=== PATIENT | male | born 1940 | race African-American/Black ===

== ENCOUNTER 2019-01-26 16:42 | Emergency (ER) | payer MEDICARE, MEDICAID ==
[~2019-01-26 16:42] MED LIST: GASTROGRAFIN 30 ML BOT ONE
--- NOTE | 2019-01-26 18:48 | RAD ---
EXAM: Single view of the abdomen HISTORY: Leaking PEG tube COMPARISON: None FINDINGS: Single view of the abdomen shows a nonspecific, nonobstructive bowel gas pattern. Contrast is seen in the patient's PEG tube, stomach, and proximal small bowel. There is no evidence of leakage of the contrast into the peritoneal cavity. No suspicious calcifications are seen. The bone s are unremarkable. IMPRESSION: PEG tube located in the stomach.
== END 2019-01-26 21:17 ==
LOC: ERS 16:42
DX: Z43.1 Encounter for attention to gastrostomy (principal); E03.9 Hypothyroidism, unspecified; E78.5 Hyperlipidemia, unspecified; M19.90 Unspecified osteoarthritis, unspecified site; E11.22 Type 2 diabetes mellitus with diabetic chronic kidney disease; N18.9 Chronic kidney disease, unspecified; G30.9 Alzheimer's disease, unspecified; M10.9 Gout, unspecified; F17.290 Nicotine dependence, other tobacco product, uncomplicated; F32.9 Major depressive disorder, single episode, unspecified; Z79.82 Long term (current) use of aspirin; Z79.899 Other long term (current) drug therapy
CPT/HCPCS: 43762; 74018; B4087; Q9963

== ENCOUNTER 2021-04-18 14:35 | Inpatient (IN) | payer MEDICARE, MEDICAID ==
[2021-04-18 15:41] LABS: #Eosinphils 0.1 thou/uL (0.0-0.7); #Monocytes 0.3 thou/uL (0.11-0.59); #Neutrophils 1.6 thou/uL (1.40-6.50); %Basophils 0.8 % (0.0-1.0); %Eosinophils 1.9 % (0.0-10.0); %Lymphocytes 33.8 % (21.0-51.0); %Monocytes 9.3 % (0.0-10.0); %Neutrophils 54.2 % (42.0-75.0); Hemoglobin 12.9 g/dL (14.0-18.0); Mean Corpuscular HGB CONC 32.4 g/dL (32.0-36.0); Mean Corpuscular Hemoglobin 31.4 pg (27.0-31.0); Mean Corpuscular Volume 96.8 fL (78.0-98.0); Mean Platelet Volume 6.9 fL (7.4-10.4); Platelet Count 126 thou/uL (130-400); RBC Distribution Width 12.8 % (11.5-14.5)
[2021-04-18 16:00] LABS: ALT (SGPT) 8 U/L (8-55); AST (SGOT) 14 U/L (5-34); Albumin 3.7 g/dL (3.4-4.8); Alkaline Phosphatase 34 U/L (40-110); Anion Gap 12 mmol/L (10-20); BUN (Urea Nitrogen) 20 mg/dL (8.4-25.7); Bilirubin, Total 0.3 mg/dL (0.2-1.2); Calc. Creatinine Clearance 0 mL/min (70-130); Calcium 8.7 mg/dL (7.8-10.44); Carbon Dioxide 23 mmol/L (23-31); Chloride 105 mmol/L (98-107); Globulin 2.3 g/dL (2.4-3.5); Glucose 106 mg/dL (83-110); Potassium 3.9 mmol/L (3.5-5.1); Sodium 136 mmol/L (136-145)
[2021-04-18] MEDS ORDERED: Lorazepam 2 MG/ML VIAL ONE ×3 (16:16→18:52)
[2021-04-18] MEDS ORDERED: Cefepime 2 GM VIAL ONE (16:16)
[2021-04-18] MEDS ORDERED: Acetaminophen 325 MG TAB PO PRN (16:28)
[2021-04-18] MEDS ORDERED: Dexamethasone 10 MG in Sodium Chloride 0.9% 50 ML IVPB SCH (16:29)
[2021-04-18] MEDS ORDERED: hydrALAZINE 20 MG/ML VIAL SLOW IVP PRN (16:29)
[2021-04-18] MEDS ORDERED: Thiamine 100 MG TAB PO SCH (16:30)
[2021-04-18] MEDS ORDERED: Enoxaparin Sodium 40 MG/0.4 ML SYRINGE SC SCH (16:30)
[2021-04-18] MEDS ORDERED: Zinc Sulfate 220 MG CAP PO SCH (17:15)
[2021-04-18] MEDS ORDERED: Cholecalciferol 1,000 UNITS (25 MCG) TAB PO SCH (17:15)
[2021-04-18] MEDS ORDERED: Pantoprazole 40 MG VIAL IVP SCH (17:15)
[2021-04-18] MEDS ORDERED: Dexamethasone 10 MG/ML VIAL SLOW IVP SCH (17:15)
[2021-04-18] MEDS ORDERED: Pharmacy to Dose REMDESIVIR IVPB PRN (17:38)
[2021-04-18] MEDS ORDERED: Ziprasidone 20 MG VIAL ONE (18:51)
[2021-04-18 19:04] LABS: SARS-CoV-2 IgG Spike Ab Interp Non-Reactive (NonReactive)
[2021-04-18] MEDS: Dexamethasone 10 MG/ML VIAL SLOW IVP SCH (21:33)
[2021-04-18] MEDS: Mometasone 200 MCG/Formoterol 5 MCG 120 PUFF INHALER INH SCH (21:56)
[2021-04-18 22:50] VITALS: BMI 22.6
[2021-04-19] MEDS: Mometasone 200 MCG/Formoterol 5 MCG 120 PUFF INHALER INH SCH (06:01)
[2021-04-19] MEDS: Dexamethasone 10 MG/ML VIAL SLOW IVP SCH (08:52)
[2021-04-19] MEDS: Ascorbic Acid 500 mg Chewable Tablet PO SCH ×2 (08:53→08:56)
[2021-04-19] MEDS: Cholecalciferol 1,000 UNITS (25 MCG) TAB PO SCH ×2 (08:53→08:57)
[2021-04-19] MEDS: Zinc Sulfate 220 MG CAP PO SCH ×2 (08:54→08:58)
[2021-04-19] MEDS: Thiamine 100 MG TAB PO SCH ×2 (08:54→08:57)
[2021-04-19] MEDS ORDERED: Pantoprazole 40 MG VIAL IVP SCH (09:00)
[2021-04-19] MEDS ORDERED: FLU VACC QS2021-22(65YR UP)/PF 240 MCG/0.7 ML SYRINGE IM ONE (09:00)
[2021-04-19] MEDS ORDERED: Enoxaparin Sodium 40 MG/0.4 ML SYRINGE SC SCH (09:00)
[2021-04-19 10:08] VITALS: BP 134/79; TEMP 98.1
[2021-04-19 12:03] LABS: SARS-CoV-2 PCR by NAA DETECTED (NotDetected)
== END 2021-04-19 15:17 | DRG 177 ==
LOC: ERS 14:35 → T4-B 16:30
PROVIDERS: ADMIT Internal Medicine; ATTEND Internal Medicine
PROC: 8E0ZXY6 Isolation (ICD-10-PCS; principal; 2021-04-18)
DX: U07.1 COVID-19 (principal); J96.21 Acute and chronic respiratory failure with hypoxia; F03.90 Unspecified dementia, unspecified severity, without behavioral disturbance, psychotic disturbance, mood disturbance, and anxiety; M06.9 Rheumatoid arthritis, unspecified; E78.5 Hyperlipidemia, unspecified; E03.9 Hypothyroidism, unspecified; E11.9 Type 2 diabetes mellitus without complications; Z28.21 Immunization not carried out because of patient refusal; Z93.0 Tracheostomy status; Z93.1 Gastrostomy status; Z79.899 Other long term (current) drug therapy; Z79.84 Long term (current) use of oral hypoglycemic drugs; Z79.890 Hormone replacement therapy
CPT/HCPCS: 36415; 71045; 80053; 83605; 83880; 84484; 85025; 85379; 86140; 86769; 87040; 87804; 93005; 94760; C9113; J0692; J1100; J1650; J2060; J3486; U0003; U0005

== ENCOUNTER 2021-04-25 17:21 | Inpatient (IN) | payer MEDICARE, MEDICAID ==
[2021-04-25 18:00] LABS: #Lymphocytes 0.3 thou/uL (1.20-3.40); #Monocytes 0.2 thou/uL (0.11-0.59); #Neutrophils 4.1 thou/uL (1.40-6.50); %Eosinophils 0.7 % (0.0-10.0); %Lymphocytes 6.6 % (21.0-51.0); %Monocytes 3.8 % (0.0-10.0); %Neutrophils 88.9 % (42.0-75.0); Hemoglobin 13.2 g/dL (14.0-18.0); Mean Corpuscular HGB CONC 32.8 g/dL (32.0-36.0); Mean Corpuscular Volume 97.6 fL (78.0-98.0); Mean Platelet Volume 7.6 fL (7.4-10.4); Platelet Count 172 thou/uL (130-400); RBC Distribution Width 13.1 % (11.5-14.5); Red Blood Cell (RBC) Count 4.11 mill/uL (4.70-6.10); White Blood Cell (WBC) Count 4.6 thou/uL (4.8-10.8)
[2021-04-25 18:12] LABS: INR-International Normal Ratio 1.3; PTT 35.3 sec (22.9-36.1)
[2021-04-25 18:21] LABS: ALT (SGPT) 21 U/L (8-55); AST (SGOT) 26 U/L (5-34); Albumin 3.3 g/dL (3.4-4.8); Alkaline Phosphatase 39 U/L (40-110); Anion Gap 15 mmol/L (10-20); BUN (Urea Nitrogen) 42 mg/dL (8.4-25.7); Bilirubin, Total 0.9 mg/dL (0.2-1.2); Calc. Creatinine Clearance 0 mL/min (70-130); Calcium 8.8 mg/dL (7.8-10.44); Carbon Dioxide 24 mmol/L (23-31); Chloride 112 mmol/L (98-107); Globulin 2.9 g/dL (2.4-3.5); Glucose 131 mg/dL (83-110); Potassium 3.8 mmol/L (3.5-5.1); Protein, Total 6.2 g/dL (5.8-8.1); Sodium 147 mmol/L (136-145)
[2021-04-25 20:56] LABS: Lactic Acid 1.9 mmol/L (0.5-2.2)
[2021-04-25] MEDS ORDERED: Ondansetron PF 4 MG/2 ML Vial IVP PRN (21:04)
[2021-04-25] MEDS ORDERED: Acetaminophen 650 MG Suppository PR PRN (21:04)
[2021-04-25] MEDS ORDERED: Ondansetron ODT 4 MG TAB PO PRN (21:04)
[2021-04-25] MEDS ORDERED: Acetaminophen 325 MG TAB PO PRN (21:04)
[2021-04-25] MEDS ORDERED: Sodium Chloride 0.9% 1,000 ML IV SCH (23:30)
[2021-04-25 23:32] VITALS: BMI 20.1
[2021-04-25] MEDS ORDERED: HumaLOG 300 UNITS/3 ML VIAL SC PRN ×2 (23:37)
[2021-04-25] MEDS ORDERED: Dextrose 50% Abboject 50 ML SYRINGE SLOW IVP PRN (23:37)
[2021-04-25] MEDS ORDERED: Dextrose 5% in Water 1,000 ML IV PRN (23:37)
[2021-04-25] MEDS ORDERED: Sterile Water 10 ML VIAL FS PRN (23:45)
[2021-04-25] MEDS ORDERED: OLANZapine 10 MG VIAL IM SCH (23:45)
[2021-04-25] MEDS ORDERED: Piperacillin/Tazobactam 3.375 GM in Sodium Chloride 0.9% 100 ML IVPB SCH (23:59)
[2021-04-26] MEDS: Sodium Chloride 0.9% 1,000 ML IV SCH ×3 (01:21→20:02)
[2021-04-26] MEDS: Piperacillin/Tazobactam 3.375 GM in Sodium Chloride 0.9% 100 ML IVPB SCH ×3 (05:39→20:02)
[2021-04-26 08:07] LABS: #Eosinphils 0.3 thou/uL (0.0-0.7); #Lymphocytes 0.8 thou/uL (1.20-3.40); #Monocytes 0.2 thou/uL (0.11-0.59); #Neutrophils 3.9 thou/uL (1.40-6.50); %Basophils 0.3 % (0.0-1.0); %Lymphocytes 15.9 % (21.0-51.0); %Monocytes 3.5 % (0.0-10.0); %Neutrophils 74.5 % (42.0-75.0); Hemoglobin 13.2 g/dL (14.0-18.0); Mean Corpuscular HGB CONC 32.5 g/dL (32.0-36.0); Mean Corpuscular Hemoglobin 32.1 pg (27.0-31.0); Mean Corpuscular Volume 98.8 fL (78.0-98.0); Mean Platelet Volume 7.7 fL (7.4-10.4); Platelet Count 176 thou/uL (130-400); RBC Distribution Width 13.1 % (11.5-14.5); White Blood Cell (WBC) Count 5.3 thou/uL (4.8-10.8)
[2021-04-26 08:13] LABS: Anion Gap 13 mmol/L (10-20); BUN (Urea Nitrogen) 35 mg/dL (8.4-25.7); Calc. Creatinine Clearance 49 mL/min (70-130); Calcium 8.9 mg/dL (7.8-10.44); Carbon Dioxide 25 mmol/L (23-31); Chloride 115 mmol/L (98-107); Glucose 97 mg/dL (83-110); Potassium 3.7 mmol/L (3.5-5.1); Sodium 149 mmol/L (136-145)
[2021-04-26] MEDS: Enoxaparin Sodium 40 MG/0.4 ML SYRINGE SC SCH (10:31)
[2021-04-26] MEDS: Zinc Sulfate 220 MG CAP PO SCH (12:37)
[2021-04-26] MEDS: Ascorbic Acid 500 mg Chewable Tablet PO SCH (12:37)
[2021-04-26] MEDS: Cholecalciferol (Vitamin D3) 400 UNITS TAB PO SCH (12:37)
[2021-04-26] MEDS ORDERED: Dexamethasone 6 MG in Sodium Chloride 0.9% 50 ML IVPB SCH (15:55)
[2021-04-26] MEDS ORDERED: Dexamethasone 4 mg/ml Vial SLOW IVP SCH (16:00)
[2021-04-27] MEDS: Piperacillin/Tazobactam 3.375 GM in Sodium Chloride 0.9% 100 ML IVPB SCH ×3 (04:44→20:57)
[2021-04-27] MEDS: Sodium Chloride 0.9% 1,000 ML IV SCH (04:45)
[2021-04-27 05:58] LABS: #Eosinphils 0.3 thou/uL (0.0-0.7); #Lymphocytes 0.9 thou/uL (1.20-3.40); #Monocytes 0.3 thou/uL (0.11-0.59); #Neutrophils 3.1 thou/uL (1.40-6.50); %Basophils 0.3 % (0.0-1.0); %Eosinophils 6.6 % (0.0-10.0); %Lymphocytes 20.1 % (21.0-51.0); %Monocytes 5.7 % (0.0-10.0); %Neutrophils 67.4 % (42.0-75.0); Hemoglobin 13.3 g/dL (14.0-18.0); Mean Corpuscular HGB CONC 32.1 g/dL (32.0-36.0); Mean Corpuscular Hemoglobin 31.6 pg (27.0-31.0); Mean Corpuscular Volume 98.5 fL (78.0-98.0); Mean Platelet Volume 7.6 fL (7.4-10.4); Platelet Count 186 thou/uL (130-400); RBC Distribution Width 13.1 % (11.5-14.5); Red Blood Cell (RBC) Count 4.19 mill/uL (4.70-6.10); White Blood Cell (WBC) Count 4.5 thou/uL (4.8-10.8)
[2021-04-27 06:24] LABS: Anion Gap 14 mmol/L (10-20); BUN (Urea Nitrogen) 22 mg/dL (8.4-25.7); Calc. Creatinine Clearance 58 mL/min (70-130); Calcium 8.7 mg/dL (7.8-10.44); Carbon Dioxide 24 mmol/L (23-31); Chloride 117 mmol/L (98-107); Glucose 133 mg/dL (83-110); Potassium 3.6 mmol/L (3.5-5.1); Sodium 151 mmol/L (136-145)
[2021-04-27] MEDS: Enoxaparin Sodium 40 MG/0.4 ML SYRINGE SC SCH (08:57)
[2021-04-27] MEDS: Ascorbic Acid 500 mg Chewable Tablet PO SCH (08:57)
[2021-04-27] MEDS: Cholecalciferol (Vitamin D3) 400 UNITS TAB PO SCH (08:57)
[2021-04-27] MEDS: Zinc Sulfate 220 MG CAP PO SCH (08:57)
[2021-04-27] MEDS: Dexamethasone 4 mg/ml Vial SLOW IVP SCH (08:57)
[2021-04-27] MEDS: Dextrose 5% in Water 1,000 ML IV SCH (11:11)
[2021-04-28] MEDS: Piperacillin/Tazobactam 3.375 GM in Sodium Chloride 0.9% 100 ML IVPB SCH ×2 (05:49→11:57)
[2021-04-28] MEDS: Dextrose 5% in Water 1,000 ML IV SCH (05:49)
[2021-04-28 07:09] LABS: Anion Gap 16 mmol/L (10-20); BUN (Urea Nitrogen) 20 mg/dL (8.4-25.7); Calc. Creatinine Clearance 66 mL/min (70-130); Calcium 8.8 mg/dL (7.8-10.44); Carbon Dioxide 20 mmol/L (23-31); Chloride 115 mmol/L (98-107); Glucose 100 mg/dL (83-110); Potassium 4.1 mmol/L (3.5-5.1); Sodium 147 mmol/L (136-145)
[2021-04-28 07:25] LABS: Hemoglobin 13.4 g/dL (14.0-18.0); Mean Corpuscular HGB CONC 31.2 g/dL (32.0-36.0); Mean Corpuscular Hemoglobin 31.2 pg (27.0-31.0); Mean Platelet Volume 7.7 fL (7.4-10.4); Platelet Count 204 thou/uL (130-400); RBC Distribution Width 13.1 % (11.5-14.5); White Blood Cell (WBC) Count 4.4 thou/uL (4.8-10.8)
[2021-04-28 07:26] LABS: Band 13 % (5-11); Eosinophils 2 % (0-10); Lymphocytes 29 % (21-51); MDiff Complete? YES; Neutrophil 56 % (42-75)
[2021-04-28] MEDS: Enoxaparin Sodium 40 MG/0.4 ML SYRINGE SC SCH (08:45)
[2021-04-28] MEDS: Dexamethasone 4 mg/ml Vial SLOW IVP SCH (08:45)
[2021-04-28] MEDS: Cholecalciferol (Vitamin D3) 400 UNITS TAB PO SCH (08:45)
[2021-04-28] MEDS: Ascorbic Acid 500 mg Chewable Tablet PO SCH (08:45)
[2021-04-28] MEDS: Zinc Sulfate 220 MG CAP PO SCH (08:45)
[2021-04-28 10:05] VITALS: BP 152/86; TEMP 98.4
== END 2021-04-28 14:40 | DRG 871 ==
LOC: ERS 17:21 → T4-B 20:06
PROVIDERS: ADMIT Student in an Organized Health Care Education/Training Program; ATTEND Internal Medicine
PROC: 8E0ZXY6 Isolation (ICD-10-PCS; principal; 2021-04-25)
DX: A41.9 Sepsis, unspecified organism (principal); J96.01 Acute respiratory failure with hypoxia; U07.1 COVID-19; N17.9 Acute kidney failure, unspecified; E87.1 Hypo-osmolality and hyponatremia; G93.49 Other encephalopathy; E78.5 Hyperlipidemia, unspecified; N18.9 Chronic kidney disease, unspecified; E11.22 Type 2 diabetes mellitus with diabetic chronic kidney disease; M10.9 Gout, unspecified; E03.9 Hypothyroidism, unspecified; F17.290 Nicotine dependence, other tobacco product, uncomplicated; M19.90 Unspecified osteoarthritis, unspecified site; R65.20 Severe sepsis without septic shock; E11.649 Type 2 diabetes mellitus with hypoglycemia without coma; M06.9 Rheumatoid arthritis, unspecified; E86.0 Dehydration; G30.9 Alzheimer's disease, unspecified; F02.80 Dementia in other diseases classified elsewhere, unspecified severity, without behavioral disturbance, psychotic disturbance, mood disturbance, and anxiety; Z79.82 Long term (current) use of aspirin; Z79.899 Other long term (current) drug therapy; Z79.84 Long term (current) use of oral hypoglycemic drugs; Z93.1 Gastrostomy status
CPT/HCPCS: 36415; 36416; 71045; 80048; 80053; 83605; 85025; 85610; 85730; 87040; 93005; J1100; J1650; J2358; J2543; J3490; J7050; J7070

== ENCOUNTER 2021-05-02 18:30 | Inpatient (IN) | payer MEDICARE, MEDICAID ==
[2021-05-02 19:20] LABS: #Eosinphils 0.1 thou/uL (0.0-0.7); #Lymphocytes 0.6 thou/uL (1.20-3.40); #Monocytes 0.2 thou/uL (0.11-0.59); #Neutrophils 5.3 thou/uL (1.40-6.50); %Basophils 0.5 % (0.0-1.0); %Eosinophils 1.9 % (0.0-10.0); %Lymphocytes 9.7 % (21.0-51.0); %Monocytes 2.8 % (0.0-10.0); %Neutrophils 85.2 % (42.0-75.0); Hemoglobin 12.5 g/dL (14.0-18.0); Mean Corpuscular HGB CONC 31.1 g/dL (32.0-36.0); Mean Corpuscular Hemoglobin 31.2 pg (27.0-31.0); Mean Platelet Volume 7.2 fL (7.4-10.4); Platelet Count 267 thou/uL (130-400); RBC Distribution Width 13.2 % (11.5-14.5); Red Blood Cell (RBC) Count 4.02 mill/uL (4.70-6.10); White Blood Cell (WBC) Count 6.2 thou/uL (4.8-10.8)
[2021-05-02 20:00] LABS: ALT (SGPT) 43 U/L (8-55); AST (SGOT) 33 U/L (5-34); Albumin 3.2 g/dL (3.4-4.8); Alkaline Phosphatase 56 U/L (40-110); Anion Gap 15 mmol/L (10-20); BUN (Urea Nitrogen) 22 mg/dL (8.4-25.7); Bilirubin, Total 0.3 mg/dL (0.2-1.2); Calc. Creatinine Clearance 0 mL/min (70-130); Calcium 8.6 mg/dL (7.8-10.44); Carbon Dioxide 23 mmol/L (23-31); Chloride 109 mmol/L (98-107); Globulin 2.2 g/dL (2.4-3.5); Glucose 183 mg/dL (83-110); Potassium 3.5 mmol/L (3.5-5.1); Protein, Total 5.4 g/dL (5.8-8.1); Sodium 143 mmol/L (136-145)
[2021-05-02 20:36] LABS: CKMB 8.2 ng/mL (0-6.6)
[2021-05-02] MEDS ORDERED: Enoxaparin Sodium 80 MG/0.8 ML SYRINGE ONE (22:27)
[2021-05-02] MEDS ORDERED: Ondansetron PF 4 MG/2 ML Vial IVP PRN (23:09)
[2021-05-02] MEDS ORDERED: Acetaminophen 325 MG TAB PO PRN (23:09)
[2021-05-02] MEDS ORDERED: Enoxaparin Sodium 60 MG/0.6 ML SYRINGE ONE (23:12)
[2021-05-02] MEDS ORDERED: Dextrose 50% Abboject 50 ML SYRINGE SLOW IVP PRN (23:19)
[2021-05-02] MEDS ORDERED: Dextrose 5% in Water 1,000 ML IV PRN (23:19)
[2021-05-02] MEDS ORDERED: HumaLOG 300 UNITS/3 ML VIAL SC PRN ×2 (23:19)
[2021-05-02 23:41] LABS: CKMB 18.5 ng/mL (0-6.6)
[2021-05-03 00:59] VITALS: BMI 21.3
[2021-05-03] MEDS ORDERED: Aspirin 325 mg Enteric Coated Tablet PO SCH (09:00)
[2021-05-03] MEDS ORDERED: Dexamethasone 4 mg/ml Vial SLOW IVP SCH (09:00)
[2021-05-03] MEDS ORDERED: FLU VACC QS2021-22(65YR UP)/PF 240 MCG/0.7 ML SYRINGE IM ONE (09:00)
[2021-05-03] MEDS: Famotidine 20 MG TAB PO SCH ×2 (09:50→21:54)
[2021-05-03] MEDS: Zinc Sulfate 220 MG CAP PO SCH (09:50)
[2021-05-03] MEDS: Ascorbic Acid 500 mg Chewable Tablet PO SCH (09:50)
[2021-05-03] MEDS ORDERED: ANTICOAG Communication Order-Pharmacy FS ONE (11:20)
[2021-05-03] MEDS ORDERED: Clopidogrel Bisulfate 300 MG TAB PO SCH (11:30)
[2021-05-03 12:53] LABS: Band 9 % (5-11); Burr Cells SLIGHT = 2-5 cells (100X) (0-1/hpf); Eosinophils 2 % (0-10); Hemoglobin 12.4 g/dL (14.0-18.0); Hypochromia SLIGHT = 6-15 cells (100X) (0-5/hpf); Lymphocytes 16 % (21-51); MDiff Complete? YES; Macrocytosis SLIGHT = 6-15 cells (100X) (0-5/hpf); Mean Corpuscular HGB CONC 31.1 g/dL (32.0-36.0); Mean Corpuscular Hemoglobin 31.8 pg (27.0-31.0); Mean Platelet Volume 7.1 fL (7.4-10.4); Monocytes 6 % (0-10); Myelocyte 3 % (0-0); Neutrophil 59 % (42-75); Ovalocytes SLIGHT = 2-5 cells (100X) (0-1/hpf); Platelet Count 278 thou/uL (130-400); Platelet Morphology Comment Appears Adequate; Polychromasia SLIGHT = 2-3 cells (100X) (0-2/hpf); RBC Distribution Width 13.2 % (11.5-14.5); Reactive Lymphocytes 4 % (0-10); White Blood Cell (WBC) Count 5.6 thou/uL (4.8-10.8)
[2021-05-03 13:06] LABS: Critical Call Chem Troponin I RESULT DECREASING; Troponin I 4.312 ng/mL (< 0.028)
[2021-05-03 13:11] LABS: Anion Gap 9 mmol/L (10-20); BUN (Urea Nitrogen) 20 mg/dL (8.4-25.7); CRP (Inflammatory) 1.32 mg/dL (= or < 0.5); Calc. Creatinine Clearance 70 mL/min (70-130); Calcium 8.7 mg/dL (7.8-10.44); Carbon Dioxide 27 mmol/L (23-31); Chloride 108 mmol/L (98-107); Glucose 107 mg/dL (83-110); Magnesium 1.5 mg/dL (1.6-2.6); Potassium 3.5 mmol/L (3.5-5.1); Sodium 140 mmol/L (136-145)
[2021-05-03] MEDS: Enoxaparin Sodium 80 MG/0.8 ML SYRINGE SC SCH (21:54)
[2021-05-03] MEDS: Atorvastatin Calcium 40 MG TAB PER TUBE SCH (21:54)
[2021-05-03] MEDS: Metoprolol Tartrate 25 MG TAB PO SCH (21:54)
[2021-05-04 07:38] LABS: Hemoglobin A1c 7.1 % (4.0-6.0)
[2021-05-04 07:43] LABS: Anion Gap 13 mmol/L (10-20); BUN (Urea Nitrogen) 17 mg/dL (8.4-25.7); Calc. Creatinine Clearance 72 mL/min (70-130); Calcium 8.7 mg/dL (7.8-10.44); Carbon Dioxide 24 mmol/L (23-31); Chloride 106 mmol/L (98-107); Glucose 85 mg/dL (83-110); Magnesium 1.5 mg/dL (1.6-2.6); Potassium 3.3 mmol/L (3.5-5.1); Sodium 140 mmol/L (136-145)
[2021-05-04 07:47] LABS: Band 15 % (5-11); Eosinophils 5 % (0-10); Hypochromia SLIGHT = 6-15 cells (100X) (0-5/hpf); Lymphocytes 25 % (21-51); MDiff Complete? YES; Macrocytosis SLIGHT = 6-15 cells (100X) (0-5/hpf); Mean Corpuscular HGB CONC 28.8 g/dL (32.0-36.0); Mean Platelet Volume 7.1 fL (7.4-10.4); Metamyelocyte 1 % (0-0); Monocytes 3 % (0-10); Myelocyte 2 % (0-0); Neutrophil 40 % (42-75); Ovalocytes SLIGHT = 2-5 cells (100X) (0-1/hpf); Platelet Count 268 thou/uL (130-400); Platelet Morphology Comment Appears Adequate; Polychromasia SLIGHT = 2-3 cells (100X) (0-2/hpf); RBC Distribution Width 13.4 % (11.5-14.5); Reactive Lymphocytes 9 % (0-10); Schistocytes SLIGHT = 2-5 cells (100X) (0-1/hpf); Target Cells SLIGHT = 2-5 cells (100X) (0-1/hpf); White Blood Cell (WBC) Count 4.9 thou/uL (4.8-10.8)
[2021-05-04] MEDS ORDERED: Enoxaparin Sodium 40 MG/0.4 ML SYRINGE SC SCH (09:00)
[2021-05-04] MEDS: Aspirin 81 mg Enteric Coated Tablet PO SCH (10:24)
[2021-05-04] MEDS: Clopidogrel Bisulfate 75 MG TAB PO SCH (10:24)
[2021-05-04] MEDS: Ascorbic Acid 500 mg Chewable Tablet PO SCH (10:24)
[2021-05-04] MEDS: Enoxaparin Sodium 80 MG/0.8 ML SYRINGE SC SCH ×2 (10:25→21:08)
[2021-05-04] MEDS: Famotidine 20 MG TAB PO SCH ×2 (10:25→21:02)
[2021-05-04] MEDS: Zinc Sulfate 220 MG CAP PO SCH (10:26)
[2021-05-04] MEDS ORDERED: Iopamidol 370 76% 100 ML VIAL ONE (10:45)
[2021-05-04] MEDS: Metoprolol Tartrate 25 MG TAB PO SCH (10:59)
[2021-05-04] MEDS ORDERED: Metoprolol Tartrate 25 MG TAB PO SCH (11:45)
[2021-05-04] MEDS ORDERED: Piperacillin/Tazobactam 3.375 GM in Sodium Chloride 0.9% 100 ML IVPB SCH (12:00)
[2021-05-04] MEDS ORDERED: Potassium Chloride 20 MEQ TAB PO SCH (12:00)
[2021-05-04] MEDS: Albuterol Sulfate 2.5 mg/3 ml Neb NEB SCH ×2 (14:21→19:40)
[2021-05-04] MEDS: Acetylcysteine 10% 100 MG/ML 30 ml Vial INH SCH ×2 (14:30→19:38)
[2021-05-04] MEDS ORDERED: OLANZapine 10 MG VIAL IM SCH (20:30)
[2021-05-04] MEDS: Piperacillin/Tazobactam 3.375 GM in Sodium Chloride 0.9% 100 ML IVPB SCH (21:02)
[2021-05-04] MEDS: Atorvastatin Calcium 40 MG TAB PER TUBE SCH (21:02)
[2021-05-04] MEDS: Metoprolol Tartrate 50 MG TAB PO SCH (21:03)
[2021-05-04] MEDS ORDERED: Sterile Water 10 ML VIAL FS PRN (21:45)
[2021-05-05] MEDS: Albuterol Sulfate 2.5 mg/3 ml Neb NEB SCH ×4 (01:28→23:10)
[2021-05-05] MEDS: Acetylcysteine 10% 100 MG/ML 30 ml Vial INH SCH ×4 (01:28→23:15)
[2021-05-05] MEDS: Piperacillin/Tazobactam 3.375 GM in Sodium Chloride 0.9% 100 ML IVPB SCH ×2 (04:08→11:46)
[2021-05-05 04:40] LABS: ALT (SGPT) 31 U/L (8-55); AST (SGOT) 23 U/L (5-34); Albumin 3.3 g/dL (3.4-4.8); Alkaline Phosphatase 46 U/L (40-110); Anion Gap 6 mmol/L (10-20); BUN (Urea Nitrogen) 10 mg/dL (8.4-25.7); Bilirubin, Total 0.8 mg/dL (0.2-1.2); Calc. Creatinine Clearance 60 mL/min (70-130); Calcium 8.7 mg/dL (7.8-10.44); Carbon Dioxide 32 mmol/L (23-31); Cardiac Risk 3.7 (Less than 4.5); Chloride 107 mmol/L (98-107); Cholesterol 165 mg/dl (< 200 Desired); Globulin 2.5 g/dL (2.4-3.5); Glucose 98 mg/dL (83-110); HDL Cholesterol 45 mg/dL (>60 Neg Risk); LDL Cholesterol, Calculated 102 mg/dL; Magnesium 1.6 mg/dL (1.6-2.6); Potassium 3.4 mmol/L (3.5-5.1); Protein, Total 5.8 g/dL (5.8-8.1); Sodium 142 mmol/L (136-145); Triglycerides 92 mg/dL (Less than 150)
[2021-05-05 05:28] LABS: Hemoglobin 12.7 g/dL (14.0-18.0); Mean Corpuscular HGB CONC 31.6 g/dL (32.0-36.0); Mean Corpuscular Hemoglobin 31.4 pg (27.0-31.0); Mean Corpuscular Volume 99.5 fL (78.0-98.0); Mean Platelet Volume 6.6 fL (7.4-10.4); Platelet Count 247 thou/uL (130-400); RBC Distribution Width 13.1 % (11.5-14.5); Red Blood Cell (RBC) Count 4.03 mill/uL (4.70-6.10); White Blood Cell (WBC) Count 4.6 thou/uL (4.8-10.8)
[2021-05-05 06:28] LABS: Band 8 % (5-11); Eosinophils 5 % (0-10); Lymphocytes 35 % (21-51); MDiff Complete? YES; Monocytes 2 % (0-10); Myelocyte 3 % (0-0); Neutrophil 45 % (42-75)
[2021-05-05] MEDS ORDERED: Folic Acid 1 MG TAB PO SCH (09:00)
[2021-05-05] MEDS ORDERED: Thiamine 100 MG TAB PO SCH (09:00)
[2021-05-05] MEDS ORDERED: Calcium Carbonate 600 MG + Vit D TAB PO SCH (09:00)
[2021-05-05] MEDS ORDERED: Zinc Sulfate 220 MG CAP PO SCH (09:00)
[2021-05-05] MEDS ORDERED: Non-Formulary Item 1 EACH (Folic Acid [Folic Acid] 0.4 MG Tablet) PO SCH (09:00)
[2021-05-05] MEDS ORDERED: Multivit, Therapeutic 1 TAB PO SCH (09:00)
[2021-05-05] MEDS ORDERED: Levothyroxine Sodium 125 MCG TAB PO SCH (09:00)
[2021-05-05] MEDS ORDERED: Non-Formulary Item 1 EACH (Multivitamin [Multi-Vitamin Daily] 1 TABLET Tablet) PO SCH (09:00)
[2021-05-05] MEDS ORDERED: Potassium Chloride 20 MEQ TAB PO SCH ×2 (09:15→10:00)
[2021-05-05] MEDS: Ascorbic Acid 500 mg Chewable Tablet PO SCH (10:38)
[2021-05-05] MEDS: Clopidogrel Bisulfate 75 MG TAB PO SCH (10:38)
[2021-05-05] MEDS: Aspirin 81 mg Enteric Coated Tablet PO SCH (10:38)
[2021-05-05] MEDS: Famotidine 20 MG TAB PO SCH (10:39)
[2021-05-05] MEDS: Metoprolol Tartrate 50 MG TAB PO SCH (10:41)
[2021-05-05] MEDS: Zinc Sulfate 220 MG CAP PO SCH (10:41)
[2021-05-05] MEDS: Enoxaparin Sodium 80 MG/0.8 ML SYRINGE SC SCH ×2 (10:44→20:29)
[2021-05-05 18:51] LABS: Troponin I 1.163 ng/mL (< 0.028)
[2021-05-05 19:37] VITALS: BP 91/52
[2021-05-05] MEDS ORDERED: Piperacillin/Tazobactam 3.375 GM in Sodium Chloride 0.9% 100 ML IVPB SCH (20:00)
[2021-05-05 20:17] VITALS: TEMP 97.4
[2021-05-05] MEDS ORDERED: Atorvastatin Calcium 40 MG TAB PO SCH (21:00)
[2021-05-06] MEDS ORDERED: Potassium Chloride 20 MEQ TAB PO SCH (08:00)
== END 2021-05-05 22:42 | disposition expired ==
LOC: ERS 18:30 → 2NO 22:25 → OBSVTOIN 05-03 02:11 → 2NO 05-03 18:24
PROVIDERS: ADMIT Internal Medicine; ATTEND Internal Medicine
DX: I21.4 Non-ST elevation (NSTEMI) myocardial infarction (principal); J69.0 Pneumonitis due to inhalation of food and vomit; J96.01 Acute respiratory failure with hypoxia; F02.81 Dementia in other diseases classified elsewhere, unspecified severity, with behavioral disturbance; Z66 Do not resuscitate; E11.9 Type 2 diabetes mellitus without complications; I10 Essential (primary) hypertension; E78.5 Hyperlipidemia, unspecified; N50.9 Disorder of male genital organs, unspecified; F17.210 Nicotine dependence, cigarettes, uncomplicated; E03.9 Hypothyroidism, unspecified; D64.9 Anemia, unspecified; M06.9 Rheumatoid arthritis, unspecified; M10.9 Gout, unspecified; E78.00 Pure hypercholesterolemia, unspecified; G30.9 Alzheimer's disease, unspecified; T17.990A Other foreign object in respiratory tract, part unspecified in causing asphyxiation, initial encounter; I48.91 Unspecified atrial fibrillation; Z79.82 Long term (current) use of aspirin; Z79.899 Other long term (current) drug therapy; Z79.84 Long term (current) use of oral hypoglycemic drugs; Z79.890 Hormone replacement therapy; Z79.891 Long term (current) use of opiate analgesic; Z78.1 Physical restraint status; Z86.16 Personal history of COVID-19
CPT/HCPCS: 36415; 36416; 71045; 71260; 76870; 80048; 80053; 80061; 82553; 83036; 83735; 83880; 84145; 84439; 84443; 84484; 85025; 85379; 86140; 86850; 86900; 86901; 87040; 93005; 93010; 93306; 93976; 94640; G0378; J1100; J1650; J2358; J2543; J3490; J7608; J7611; Q9967